=== PATIENT | male | born 1990 | race African-American/Black ===

== ENCOUNTER 2017-09-24 14:22 | Emergency (ER) | payer SELFPAY | END 2017-09-24 15:48 | disposition home or self-care (01) | LOC: E/R 14:22 | DX: S63.114A Dislocation of metacarpophalangeal joint of right thumb, initial encounter (principal); R40.2412 Glasgow coma scale score 13-15, at arrival to emergency department; W18.39XA Other fall on same level, initial encounter; Y92.9 Unspecified place or not applicable | CPT/HCPCS: 29125; 73130-RT; 99283-25 ==